=== PATIENT | female | born 1950 | race Caucasian/White ===

== ENCOUNTER 2016-12-05 01:09 | Emergency (ER) | payer MEDICARE ==
[~2016-12-05] VITALS: Ht 160 cm; Wt 65.0 kg
[2016-12-05] MEDS ORDERED: LEVOTHYROXIN125 MC1 PO (01:18)
[2016-12-05 02:51] LABS: HEMATOCRIT 47.5 % (37.0-47.0); HEMOGLOBIN 15.7 g/dl (12.0-16.0); IMMATURE GRANULOCYTES 0.4 % (0.0-1.0); MEAN CELL VOLUME 90.8 fL CALC (80.0-100.0); MEAN CORPUSCULAR HGB CONC 33.1 g/L CALC (32.0-36.0); NEUT# 3.87 thou/uL (2.00-7.15); RED BLOOD COUNT 5.23 mill/uL (4.20-5.60); RED CELL DISTRI WIDTH 12.5 % (11.5-15.5)
[2016-12-05 03:10] LABS: ALBUMIN 4.8 g/dL (3.2-5.0); ALKALINE PHOSPHATASE 54 u/l (38-126); AMYLASE 66 u/l (30-110); ANION GAP 17 (6-22 (CALC)); BILIRUBIN, TOTAL 0.8 mg/dL (0.0-1.4); BUN 22 mg/dL (8-23); BUN/CREATININE RATIO 27 (12-20 (CALC)); CALCIUM 10.1 mg/dL (8.4-10.2); CARBON DIOXIDE 26 mmol/l (22-30); CHLORIDE 106 mmol/l (95-108); CREATININE 0.8 mg/dL (0.5-1.0); GFR > 60 ML/MIN (>=60 (CALC)); GFR FOR AFR.AMER. > 60 ML/MIN (>=60 (CALC)); GLUCOSE 97 mg/dL (82-115); LIPASE 217 u/l (23-300); POTASSIUM 4.3 mmol/l (3.5-5.1); SGOT/AST 28 u/l (9-36); SGPT/ALT 32 u/l (11-66); SODIUM 145 mmol/l (137-146); TOTAL PROTEIN 8.2 g/dL (6.3-8.2)
[2016-12-05 03:15] LABS: URINE BILIRUBIN - DIPSTICK NEGATIVE (NEGATIVE); URINE BLOOD DIPSTICK NEGATIVE (NEGATIVE); URINE CLARITY SLIGHT CLOUDY; URINE COLOR YELLOW; URINE GLUCOSE - DIPSTICK NEGATIVE (NEGATIVE); URINE KETONE NEGATIVE (NEGATIVE); URINE LEUK ESTERASE TRACE (NEGATIVE); URINE NITRITE - DIPSTICK NEGATIVE (Negative); URINE PROTEIN - DIPSTICK NEGATIVE (NEG-TRACE); URINE UROBILINOGEN - DIPSTICK 0.2 E.U./dL (0.2)
[2016-12-05] MEDS ORDERED: LORTAB 1010 MG PO (04:36)
[2016-12-05 04:50] VITALS: BP 119/68
== END 2016-12-05 04:55 | disposition home or self-care (01) ==
LOC: ED 01:09
PROVIDERS: Emergency Medicine
DX: S20.211A Contusion of right front wall of thorax, initial encounter (principal); E03.9 Hypothyroidism, unspecified; N32.89 Other specified disorders of bladder; M48.50XA Collapsed vertebra, not elsewhere classified, site unspecified, initial encounter for fracture; W01.190A Fall on same level from slipping, tripping and stumbling with subsequent striking against furniture, initial encounter; R10.11 Right upper quadrant pain

== ENCOUNTER 2017-04-19 08:00 | Emergency (ER) | payer MEDICARE ==
[~2017-04-19] VITALS: Ht 160 cm; Wt 80.0 kg
[~2017-04-19 08:00] MED LIST: LEVOTHYROXIN125 MC1 PO; LORTAB 1010 MG PO
[2017-04-19] MEDS ORDERED: FLEXERIL PO (10:04)
[2017-04-19] MEDS ORDERED: LORTAB 1010 MG PO (10:04)
[2017-04-19 10:15] VITALS: BP 115/62
== END 2017-04-19 10:15 | disposition home or self-care (01) ==
LOC: ED 08:00
DX: M16.11 Unilateral primary osteoarthritis, right hip (principal); E07.9 Disorder of thyroid, unspecified